=== PATIENT | male | born 1940 | race Caucasian/White ===

== ENCOUNTER → 2018-11-02 11:41 | Outpatient (CLI) | payer MEDICARE, OTHER ==
[2014-07-02 01:58] VITALS: BMI 25.1
[~2018-11-02 11:41] MED LIST: ATIVAN1 MG PO; PAXIL10 MG PO
== END | disposition home or self-care (01) ==
LOC: D.CT 11:41
DX: I71.4 Abdominal aortic aneurysm, without rupture (principal)

== ENCOUNTER → 2019-06-07 14:46 | Outpatient (CLI) | payer MEDICARE, OTHER ==
[2014-07-02 01:58] VITALS: BMI 25.1
== END | disposition home or self-care (01) ==
LOC: D.CT 14:46
PROVIDERS: ATTEND Internal Medicine Interventional Cardiology
DX: I71.4 Abdominal aortic aneurysm, without rupture (principal)

== ENCOUNTER → 2019-09-01 08:17 | Outpatient (CLI) | payer MEDICARE, OTHER ==
[2014-07-02 01:58] VITALS: BMI 25.1
== END | disposition home or self-care (01) ==
LOC: D.CT 08:17
PROVIDERS: ATTEND Internal Medicine Interventional Cardiology
DX: I71.4 Abdominal aortic aneurysm, without rupture (principal)

== ENCOUNTER → 2020-03-20 10:18 | Outpatient (CLI) | payer MEDICARE, OTHER ==
[2014-07-02 01:58] VITALS: BMI 25.1
== END | disposition home or self-care (01) ==
LOC: D.CT 10:18
PROVIDERS: ATTEND Internal Medicine Cardiovascular Disease
DX: I71.4 Abdominal aortic aneurysm, without rupture (principal)

== ENCOUNTER 2020-04-12 21:43 | Emergency (ER) | payer MEDICARE, OTHER ==
[~2020-04-12] VITALS: Ht 177.8 cm; Wt 75.0 kg
[2020-04-12 21:54] VITALS: Ht 177.8 cm; Wt 75.0 kg
[2020-04-12 22:35] LABS: BASOPHILS 0.5 % (0-2); EOSINOPHILS 5.3 % (0-7); HEMATOCRIT 43.6 % (42.0-54.0); HEMOGLOBIN 14.6 g/dL (13.5-17.5); IMMATURE GRANULOCYTES 0.2 % (0-5); LYMPHOCYTES 24.7 % (15-50); MCHC 33.5 g/dL (31.0-37.0); MCV 89.7 fL (80.0-100.0); MEAN PLATELET VOLUME 10.3 fL (7.4-10.4); MONOCYTES 12.2 % (2-11); NEUTROPHILS 57.1 % (40-80); PLATELET COUNT 140 10x3/uL (130-400); RBC 4.86 10x6/uL (4.20-6.10); RDW 13.6 % (11.5-14.5); WBC 6.6 10x3/uL (4.8-10.8)
[2020-04-12 22:45] LABS: ANION GAP 11.1 mmol/L (8-16); CALCIUM 8.6 mg/dL (8.5-10.1); CARBON DIOXIDE 26.9 mmol/L (21.0-32.0); CREATININE - SERUM 1.3 mg/dL (0.6-1.3)
[2020-04-12 22:53] LABS: ALBUMIN 3.2 g/dL (3.4-5.0); BILIRUBIN - TOTAL 0.45 mg/dL (0.2-1.3); PROTEIN - SERUM 6.9 g/dL (6.4-8.2); TROPONIN-I 0.058 ng/mL (0.000-0.060)
[2020-04-13] MEDS ORDERED: ULTRAM50 MG PO (01:34)
[2020-04-13 01:48] VITALS: BP 170/91
== END 2020-04-13 01:49 | disposition home or self-care (01) ==
LOC: D.ER 21:43
PROVIDERS: Family Medicine
DX: R07.89 Other chest pain (principal); Z95.0 Presence of cardiac pacemaker

== ENCOUNTER 2020-04-20 11:38 | Outpatient (CLI) | payer MEDICARE, OTHER ==
[~2020-04-20] VITALS: Ht 177.8 cm; Wt 74.5 kg
[~2020-04-20 11:38] MED LIST changes: +ULTRAM50 MG PO
[2020-04-20 12:57] VITALS: BP 150/74; Ht 177.8 cm; Wt 74.5 kg
[2020-04-20] MEDS ORDERED: PLAVIX75 MG PO (15:46)
[2020-04-20] MEDS ORDERED: BAYER CHEWABLE81 MG PO (15:46)
== END 2020-04-20 18:45 | disposition home or self-care (01) ==
LOC: D.CATH 11:38
PROVIDERS: ATTEND Internal Medicine Interventional Cardiology
DX: I70.1 Atherosclerosis of renal artery (principal); I10 Essential (primary) hypertension; Z95.0 Presence of cardiac pacemaker; I71.4 Abdominal aortic aneurysm, without rupture; I48.91 Unspecified atrial fibrillation

== ENCOUNTER → 2020-08-23 07:32 | Outpatient (CLI) | payer MEDICARE, OTHER ==
[2020-04-20 12:57] VITALS: BMI 23.5
[~2020-08-23 07:32] MED LIST changes: +BAYER CHEWABLE81 MG PO; +PLAVIX75 MG PO
== END | disposition home or self-care (01) ==
LOC: D.US 07:32
PROVIDERS: ATTEND Internal Medicine Interventional Cardiology
DX: I71.4 Abdominal aortic aneurysm, without rupture (principal)

== ENCOUNTER → 2021-01-26 08:57 | Outpatient (CLI) | payer MEDICARE, OTHER ==
[2020-04-20 12:57] VITALS: BMI 23.5
== END | disposition home or self-care (01) ==
LOC: D.US 08:57
PROVIDERS: ATTEND Internal Medicine Interventional Cardiology
DX: I71.4 Abdominal aortic aneurysm, without rupture (principal)

== ENCOUNTER → 2021-02-06 08:38 | Outpatient (CLI) | payer MEDICARE, OTHER ==
[2020-04-20 12:57] VITALS: BMI 23.5
== END | disposition home or self-care (01) ==
LOC: D.CT 08:38
PROVIDERS: ATTEND Thoracic Surgery (Cardiothoracic Vascular Surgery)
DX: I71.4 Abdominal aortic aneurysm, without rupture (principal)

== ENCOUNTER 2021-02-09 13:58 | Inpatient (IN) | payer MEDICARE, OTHER ==
[~2021-02-09] VITALS: Ht 177.8 cm; Wt 76.1 kg
[2021-02-09 12:53] LABS: BASOPHILS 0.4 % (0-2); EOSINOPHILS 3.2 % (0-7); HEMATOCRIT 47.1 % (42.0-54.0); HEMOGLOBIN 15.6 g/dL (13.5-17.5); IMMATURE GRANULOCYTES 0.3 % (0-5); LYMPHOCYTES 22.6 % (15-50); MCH 29.7 pg (26.0-34.0); MCHC 33.1 g/dL (31.0-37.0); MCV 89.5 fL (80.0-100.0); MEAN PLATELET VOLUME 10.6 fL (7.4-10.4); MONOCYTES 10.3 % (2-11); NEUTROPHIL ABS# 4.48 10x3/uL (1.78-5.38); NEUTROPHILS 63.2 % (40-80); PLATELET COUNT 163 10x3/uL (130-400); RBC 5.26 10x6/uL (4.20-6.10); RDW 13.5 % (11.5-14.5); WBC 7.1 10x3/uL (4.8-10.8)
[2021-02-09 12:59] LABS: BILIRUBIN NEGATIVE (NEGATIVE); KETONE NEGATIVE (NEGATIVE); NITRITE NEGATIVE (NEGATIVE); UROBILINOGEN NORMAL mg/dL (< 2)
[2021-02-09 13:02] LABS: APTT 29.8 SECONDS (22.8-39.4); INR 1.11 (0.85-1.17); PROTIME 13.3 SECONDS (11.6-15.0)
[2021-02-09 13:09] LABS: ALBUMIN 3.5 g/dL (3.4-5.0); ANION GAP 7.9 mmol/L (8-16); BILIRUBIN - TOTAL 0.73 mg/dL (0.2-1.3); CALCIUM 9.2 mg/dL (8.5-10.1); CARBON DIOXIDE 28.9 mmol/L (21.0-32.0); CREATININE - SERUM 1.2 mg/dL (0.6-1.3); POTASSIUM - SERUM 4.8 mmol/L (3.5-5.1); PROTEIN - SERUM 7.5 g/dL (6.4-8.2)
[~2021-02-09 13:58] MED LIST changes: +FLUTICASONE PRO16 GM NASAL
[2021-02-12] VITALS (58 sets, daily range): BP systolic 101–144; BP diastolic 41–79; BMI 23.8; BMI 23.7
--- NOTE | 2021-02-12 16:49 | NUR ---
PT COMPLAINING OF BLADDER SPASMS. DR. BARBER NOTIFIED. ORDERED TO DC DIXON CATHETER AND NICOLE.
[2021-02-13] VITALS (62 sets, daily range): BP systolic 54–169; BP diastolic 25–78
--- NOTE | 2021-02-13 02:58 | NUR ---
PT UNABLE TO URINATE SINCE DIXON D/C'D. PT SAT ON SIDE OF BED TO ATTEMPT AND WAS UNABLE TO URINATE. BLADDER SCANNED WITH 633MLS, NOTED. PAGED [employer] SIGNAL TOWER OPERATOR MECHANICAL CAD DRAFTER, REPORT GIVEN. ORDER FOR IN AND OUT CATH AND RECHECK BLADDER IN 4 HOURS.
--- NOTE | 2021-02-13 03:45 | NUR ---
IN AND OUT CATH COMPLETED 575ML COLLECTED. CLEAR YELLOW. PT TOLERATED WELL.
[2021-02-13 05:19] LABS: HEMOGLOBIN 11.6 g/dL (13.5-17.5); MCHC 32.2 g/dL (31.0-37.0); MEAN PLATELET VOLUME 10.6 fL (7.4-10.4); RDW 13.9 % (11.5-14.5); WBC 10.4 10x3/uL (4.8-10.8)
[2021-02-13 05:29] LABS: ANION GAP 8.5 mmol/L (8-16); CALCIUM 8.2 mg/dL (8.5-10.1); CARBON DIOXIDE 28.3 mmol/L (21.0-32.0); CREATININE - SERUM 1.1 mg/dL (0.6-1.3); POTASSIUM - SERUM 3.8 mmol/L (3.5-5.1)
--- NOTE | 2021-02-13 07:00 | NUR ---
RECEIVED BEDSIDE REPORT ON PATIENT AND ASSUMED CARE. PATIENT IN BED, ALERT AND ORIENTED X 4, NO COMPLAINTS AT PRESENT, STATES ORAL PAIN MEDS HELPED. RIGHT IJ CVL WITH DRESSING C/D/I INFUSING PLASMOLTYE AT 100 ML/HR, NTG AT 20 MCG/MIN (6 ML/HR) AND ZINACEF AT 12.8 ML/HR. BBS - CLEAR AND EQUAL, SPO2 95% ON 2 LPM O2 VIA NC. CM - PACED RATE 74. PATIENT STATES HAS NOT VOIDED SINCE DIXON CATH BEING DISCONTINUED. WAS BLADDER SCANNED LAST NIGHT AND HAD 60 ML, IN AND OUT DIXON COMPLETED WITH 75 RETURNED PER NIGHT RN. BILATERAL GROIN SITES, DRESSING C/D/I, DISTAL DP PULSES PRESENT. HARRY HOSE AND SCD'S IN PLACE. HEAD TO TOE ASSESSMENT COMPELTED. PATEITN WITH ACTIVE BOWEL SOUNDS AND PASSING GAS.
--- NOTE | 2021-02-13 08:02 | NUR ---
DR. DEE AT ROOM UPDATED AND EXAMINES PATIENT.
--- NOTE | 2021-02-13 08:59 | NUR ---
BLADDER SCANNER SHOWED 296 ML, PATIENT NOT ABLE TO VOID.
--- NOTE | 2021-02-13 09:20 | NUR ---
PRN HYDRALIZINE GIVEN FOR SBP 152. BP 152/71.
--- NOTE | 2021-02-13 09:27 | NUR ---
PATEINT UP TO BEDSIDE CHAIR. AT BEDSIDE.
--- NOTE | 2021-02-13 09:54 | NUR ---
PATIENT ASSISTED TO BATHROOM. VSS.
--- NOTE | 2021-02-13 10:42 | MORECARE ---
CASE MANAGEMENT DISCHARGE SUMMARY PATIENT: NICOLAS SAMAYOA UNIT: [id number] ADM DATE: 02/12/21 AGE: 80 : 41 SEX: M ROOM/BED: [facility] AUTHOR: MARGARETH,DOC PHYSICIAN: REFERRING PHYSICIAN: KYLER BARBER MD DATE OF SERVICE: 02/13/21 Case Management Discharge Planning Summary CT Patient Name: NICOLAS SAMAYOA Attending MD : KYLER WEISS Medical Record: [id number] Encounter : [id number] Facility : [address] [place] [address] Admission Date : 02/12/2021 5:00 Center Discharge Date : [address] [place] [address] Date of : DC Plan ID : [id number] Age/Sex/Martia : 80/ M/M Printed on : 02/13/21 10:40 CT DCP Review Details Anticipated D/C: 02/13/2021 Expected LOS : 1 Case Status : INITIATED - Initial Reviewe: [id number] - Lesa Pearson Initial Review: 02/13/2021 Planned Disposi: 01 - Home or Self Care (Routine Discharge) Final Discharge: - Final Reviewer : : Final Review : Comments CT Entered Date Type Reviewer 02/13/21 10:37 CT Discharge Planning Lesa Pearson Comment After obtaining verbal consent, CM met with patient and his spouse, Kylie, about discharge planning / needs. Patient states he plans to discharge to home. States the home environment is safe. States his will transport him home upon discharge. CM explained and served DC IMM. Copy on chart. Patient is hoping to discharge to home today. Patient and spouse in agreement on discharge plan. CM will continue to follow and assist as needed with discharge planning / needs. DCP Focus Questions & Answers DCP Screen High Risk Factors: High risk meds DCP Evaluation Patient gives permission to discuss discharge Kylie Samayoa, Spouse, plans with: (name, relationship and number) Patient's ability to cope with chronic illness a. Adequate (0-3 ED visits in 6 mos., adequate financial resources, attends scheduled appts.) Patient and/or caregiver agree upon recommended Yes discharge plan? Family / Caregiver's ability to cope with chronic a. Adequate (ability to meet patient's illness: medical needs, ensures patient attends medical appts.) Patient's current cognitive status: *Oriented to person, place, situation, time and present Family / Caregiver's ability to cope with chronic a. Adequate (ability to meet patient's illness: medical needs, ensures patient attends medical appts.) Physical Status: Independent with ADL's Does the patient have the ability to pay for or Yes attain post discharge needs / services? Functional screen assessment: Basic needs can adequately be met by self Living Arrangements: Home with Spouse/Significant Other Equipment needed for post hospitalization: None Is there a likelihood that the patient will No require additional services to return to the preadmission environment? Baseline cognitive status: *Oriented to person, place, situation, time and present Results of this evaluation have been discussed Spouse with: Patient with capacity for self-care or can be Yes cared for in same environment as prior to hospitalization? Physical environment modification needed / No anticipated for discharge: Medication Management: Patient states can afford medications Planned post hospital services available for Yes patient? Pharmacy name(s): [facility] Planned post hospital services covered by Yes insurance plan? Does Patient have transportation to get home and Yes to follow-up medical appointments when discharged from the hospital? Would patient like to participate in any Care Not applicable Coordination programs (if applicable): Does the patient have electricity at home? Yes Does the patient have running water in their Yes house? Other Equipment comments: Grab Bars in Shower Mental health screen: Receiving treatment, not under the care of a mental health provider Psychosocial status: Independent adult (65+) Abuse/Neglect: None Resources / Services in place: None DCP Re-evaluation Would patient like to participate in any Care Not applicable Coordination programs (if applicable): [facility] NICOLAS SAMAYOA MR#: [id number] /Age/Sex/Yrxxxz5-Udf-72 /80/M /M Attending Physician Name: RIKI BARBER [id number] Patient Account:[id number] [facility] Page -1 of 1 All edits/amendments must be made on the electronic document DICTATION DATE: 02/13/211039 ELECTRICAL MACHINE BUILDER: [place] 02/13/211039 RPT#: [id number] [place] DATE: STATUS: ADM IN [facility] [address] [place] [address] END OF REPORT
--- NOTE | 2021-02-13 11:00 | NUR ---
REASSESSMENT COMPLETED. VSS. SITTING UP IN BEDSIDE CHAIR.
--- NOTE | 2021-02-13 13:04 | NUR ---
PATIENT UP AND WALKED APPROXIMATELY 140 FEET. TOLERATED WELL NO ISSUES.
--- NOTE | 2021-02-13 15:22 | NUR ---
PATIENT GIVEN 10 MG PRN APRESSOLINE IVP WITH NS FLUSH FOR BP 169/79.
--- NOTE | 2021-02-13 16:17 | NUR ---
BP 162/64 IN LEFT ARM AND 160/67, PER DR. BARBER GIVEN 25 MG APRESSOLINE PO.
--- NOTE | 2021-02-13 16:23 | OP ---
PATIENT NAME: NICOLAS SAMAYOA MEDICAL RECORD: [id number] :42 LOCATION:D.I DJuan ManuelCV04 ADMISSION DATE:02/12/21 SURGEON: ZIA BARBER MD DATE OF OPERATION: 02/12/2021 SURGEON: Zia Barber MD PROCEDURE PERFORMED: Percutaneous endovascular repair of abdominal aortic aneurysm with deployment of a bifurcated endograft, deployment of infrarenal proximal extension, aortogram times 4, iliac angiogram, bilateral percutaneous femoral access utilizing ultrasound. 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 ANESTHESIA: General endotracheal anesthesia. ESTIMATED BLOOD LOSS: 50 cc. SPECIMENS: None. COMPLICATIONS: None. CONDITION: Stable. DISPOSITION: ICU. OPERATIVE FINDINGS: 1. Initial aortogram confirmed the placement of a stent, intraoperatively reviewed with cardiology, who felt no further intervention was necessary at this time. 2. Completion angiogram with no evidence of endoleak. INDICATION: Documented enlargement of abdominal aortic aneurysm. PROCEDURE IN DETAIL: The patient was brought to the operating suite where general anesthesia was obtained, the patient was prepped and draped. Bilateral femoral access was obtained using ultrasound and micropuncture technique. On the right side, 6-Eritrean sheath was exchanged for 2 pre-deployed ProGlide systems and then a 9-Eritrean sheath and on the left a 7-Eritrean sheath. On the right side, the pigtail catheter was placed and the initial arteriogram was performed confirming the noncontrasted findings seen on the CT scan on the left snare catheter and snare were placed and then on the right side, a stiff wire was placed. The introducer system was placed and the bifurcated endograft was advanced. The wire was snared from the contralateral side and the device was seated on the aortic bifurcation after checking for wire wrap. Main body of the graft was deployed. Then, the contralateral wire was unlocked using a pigtail catheter and the left limb was deployed, then the right limb was deployed. The proximal extension was advanced to the appropriate size and an angiogram was performed again visualizing the stent which was clearly visible on fluoroscopy. Proximal extension was deployed. Aortic angioplasty was performed after removing the pigtail catheter, which was unable to be reformed and was removed OPERATIVE REPORT [id number] NICOLAS SAMAYOA from the left. Pigtail was placed up the right side and the completion angiogram was performed. Pigtail was then replaced on the left. The right side was closed percutaneously and completion angiogram was only able to partially opacify the right femoral, but showed no evidence of obstruction. No bleeding was noted. The sheath was used on the left side for placement of the Angio-Seal device. Protamine was given, a total of 10,000 had been given of heparin initially after placing the 2 femoral sheaths. The patient is stable to ICU with Doppler bilateral dorsalis pedis and posterior tibial. TRANSINT:[id number] Voice Confirmation ID: [id number] DOCUMENT ID: [id number] ZIA BARBER MD at 1623 CC: HARRY JALLOH DO and MINO SHEARER MD [id number] DICTATION DATE: 02/12/21 1042 BOARD HAMMER OPERATOR: 02/12/21 1814 ADM IN [facility] [address] [place] [address]
--- NOTE | 2021-02-13 23:23 | NUR ---
PT WITH NO C/O, UPDATED AT BEGINNING OF SHIFT ON POC. DISCUSSED AT LENGTH BP MEDS AND NEED FOR CONTROLLED BP. PT WALKED WELL TO BATHROOM. WALKED WITH PT TO ASSIST IF NEEDED AND FOR SAFETY. NO COMPLICATIONS NOTED. BACK TO BED AND RECONNECTED TO MONITOR. SBP >150 AT 2200. GIVEN PRN MED ORDERED. 2230 IMPROVED AND 2300 BP <150 SBP. WILL CONT TO MONITOR. SLEEPING WITHOUT C/O. C/B IN REACH.
[2021-02-14] VITALS (31 sets, daily range): BP systolic 87–178; BP diastolic 41–89; Ht 177.8 cm; Wt 76.1 kg
[2021-02-14 05:09] LABS: BASOPHILS 0.2 % (0-2); HEMATOCRIT 38.2 % (42.0-54.0); HEMOGLOBIN 12.4 g/dL (13.5-17.5); IMMATURE GRANULOCYTES 0.2 % (0-5); LYMPHOCYTE ABS# 1.69 10x3/uL (1.32-3.57); LYMPHOCYTES 17.9 % (15-50); MCH 29.3 pg (26.0-34.0); MCHC 32.5 g/dL (31.0-37.0); MCV 90.3 fL (80.0-100.0); MEAN PLATELET VOLUME 10.5 fL (7.4-10.4); MONOCYTES 9.7 % (2-11); NEUTROPHIL ABS# 6.72 10x3/uL (1.78-5.38); PLATELET COUNT 126 10x3/uL (130-400); RBC 4.23 10x6/uL (4.20-6.10); RDW 14.1 % (11.5-14.5); WBC 9.5 10x3/uL (4.8-10.8)
[2021-02-14 05:25] LABS: ALBUMIN 2.9 g/dL (3.4-5.0); ANION GAP 8.6 mmol/L (8-16); BILIRUBIN - TOTAL 0.9 mg/dL (0.2-1.3); CALCIUM 8.7 mg/dL (8.5-10.1); CARBON DIOXIDE 28.1 mmol/L (21.0-32.0); CREATININE - SERUM 1.1 mg/dL (0.6-1.3); POTASSIUM - SERUM 3.7 mmol/L (3.5-5.1); PROTEIN - SERUM 6.4 g/dL (6.4-8.2)
--- NOTE | 2021-02-14 09:40 | NUR ---
DR. AYALA IS HERE WITH IDT TEAM IN TO SEE PATIENT.
--- NOTE | 2021-02-14 10:36 | NUR ---
PATIENT SLEEPING AT THIS TIME NO DISTRESS NOTED. WILL CONTINUE TO MONITOR. CALL LIGHT WITHIN REACH, BED IN LOW POSITION.
--- NOTE | 2021-02-14 15:05 | NUR ---
DR. BARBER HERE IN TO SEE PATIENT. NEW ORDER RECEIVED.
[2021-02-15] VITALS (18 sets, daily range): BP systolic 111–159; BP diastolic 54–77
[2021-02-15 06:18] LABS: ALBUMIN 2.5 g/dL (3.4-5.0); ALKALINE PHOSPHATASE 50 U/L (30-120); ALT (SGPT) 9 U/L (10-68); BILIRUBIN - TOTAL 0.87 mg/dL (0.2-1.3); CALC OSMOLALITY 277 mosm/kg (275-300); CALCIUM 8.3 mg/dL (8.5-10.1); CARBON DIOXIDE 26.9 mmol/L (21.0-32.0); CHLORIDE - SERUM 105 mmol/L (98-107); GLUCOSE 87 mg/dL (74-106); POTASSIUM - SERUM 3.7 mmol/L (3.5-5.1); PROTEIN - SERUM 5.7 g/dL (6.4-8.2); SODIUM 139 mmol/L (136-145); UREA NITROGEN 15 mg/dL (7-18); eGFR NON AFRICAN AMERICAN 76 mL/min (90-120)
[2021-02-15 07:06] LABS: BASOPHILS 0.2 % (0-2); EOSINOPHILS 6.8 % (0-7); HEMATOCRIT 35.9 % (42.0-54.0); HEMOGLOBIN 11.5 g/dL (13.5-17.5); IMMATURE GRANULOCYTES 0.2 % (0-5); LYMPHOCYTE ABS# 1.48 10x3/uL (1.32-3.57); LYMPHOCYTES 23.8 % (15-50); MCH 29.3 pg (26.0-34.0); MCV 91.6 fL (80.0-100.0); MONOCYTES 12.6 % (2-11); NEUTROPHIL ABS# 3.51 10x3/uL (1.78-5.38); NEUTROPHILS 56.4 % (40-80); PLATELET COUNT 117 10x3/uL (130-400); RBC 3.92 10x6/uL (4.20-6.10); WBC 6.2 10x3/uL (4.8-10.8)
--- NOTE | 2021-02-15 10:14 | MORECARE ---
CASE MANAGEMENT DISCHARGE SUMMARY PATIENT: NICOLAS SAMAYOA UNIT: [id number] ADM DATE: 02/12/21 AGE: 80 : 41 SEX: M ROOM/BED: [facility] AUTHOR: MARGARETH,DOC PHYSICIAN: REFERRING PHYSICIAN: KYLER BARBER MD DATE OF SERVICE: 02/15/21 Case Management Discharge Planning Summary CT Patient Name: NICOLAS SAMAYOA Attending MD : KYLER WEISS Medical Record: [id number] Encounter : [id number] Facility : [address] [place] [address] Admission Date : 02/12/2021 5:00 Center Discharge Date : [address] [place] [address] Date of : DC Plan ID : [id number] Age/Sex/Martia : 80/ M/M Printed on : 02/15/21 10:13 CT DCP Review Details Anticipated D/C: 02/13/2021 Expected LOS : 1 Case Status : INITIATED - Initial Reviewe: [id number] - Lesa Pearson Initial Review: 02/13/2021 Planned Disposi: 01 - Home or Self Care (Routine Discharge) Final Discharge: - Final Reviewer : : Final Review : Comments CT Entered Date Type Reviewer 02/13/21 10:37 CT Discharge Planning Lesa Pearson Comment After obtaining verbal consent, CM met with patient and his spouse, Kylie, about discharge planning / needs. Patient states he plans to discharge to home. States the home environment is safe. States his will transport him home upon discharge. CM explained and served DC IMM. Copy on chart. Patient is hoping to discharge to home today. Patient and spouse in agreement on discharge plan. CM will continue to follow and assist as needed with discharge planning / needs. DCP Focus Questions & Answers DCP Screen High Risk Factors: High risk meds DCP Evaluation Patient gives permission to discuss discharge Kylie Samayoa, Spouse, plans with: (name, relationship and number) Patient's ability to cope with chronic illness a. Adequate (0-3 ED visits in 6 mos., adequate financial resources, attends scheduled appts.) Patient and/or caregiver agree upon recommended Yes discharge plan? Family / Caregiver's ability to cope with chronic a. Adequate (ability to meet patient's illness: medical needs, ensures patient attends medical appts.) Patient's current cognitive status: *Oriented to person, place, situation, time and present Family / Caregiver's ability to cope with chronic a. Adequate (ability to meet patient's illness: medical needs, ensures patient attends medical appts.) Physical Status: Independent with ADL's Does the patient have the ability to pay for or Yes attain post discharge needs / services? Functional screen assessment: Basic needs can adequately be met by self Living Arrangements: Home with Spouse/Significant Other Equipment needed for post hospitalization: None Is there a likelihood that the patient will No require additional services to return to the preadmission environment? Baseline cognitive status: *Oriented to person, place, situation, time and present Results of this evaluation have been discussed Spouse with: Patient with capacity for self-care or can be Yes cared for in same environment as prior to hospitalization? Physical environment modification needed / No anticipated for discharge: Medication Management: Patient states can afford medications Planned post hospital services available for Yes patient? Pharmacy name(s): [facility] Planned post hospital services covered by Yes insurance plan? Does Patient have transportation to get home and Yes to follow-up medical appointments when discharged from the hospital? Would patient like to participate in any Care Not applicable Coordination programs (if applicable): Does the patient have electricity at home? Yes Does the patient have running water in their Yes house? Other Equipment comments: Grab Bars in Shower Mental health screen: Receiving treatment, not under the care of a mental health provider Psychosocial status: Independent adult (65+) Abuse/Neglect: None Resources / Services in place: None DCP Re-evaluation Would patient like to participate in any Care Not applicable Coordination programs (if applicable): [facility] NICOLAS SAMAYOA MR#: [id number] /Age/Sex/Oinghf8-Egs-88 /80/M /M Attending Physician Name: RIKI BARBER [id number] Patient Account:[id number] [facility] Page -1 of 1 All edits/amendments must be made on the electronic document DICTATION DATE: 02/15/21 1013 MATERIALS DEVELOPMENT ENGINEER: [place] 02/15/21 1013 RPT#: [id number] DC DATE: STATUS: ADM IN [facility] [address] [place] [address] END OF REPORT
--- NOTE | 2021-02-15 10:42 | NUR ---
PATIENT WALKED DISTANCE OF 500FT. TOLERATED WELL. DR. BARBER'S NOTIFIED THAT PATIENT IS READY FOR DISCHARGE.
--- NOTE | 2021-02-15 10:53 | NUR ---
Nutrition Follow-up: POD 3 PEVAR. Appetite ok. Ate ~50% of breakfast this AM. Denies N/V. -BM; +flatus. Pt reports plans to d/c today. Diet: Cardiac PO intake: 50-80% Wt: 167.5# (02/15); 165.3# (02/12) Labs noted: Ca 8.3, Alb 2.5 Meds noted: Colace -Encourage PO intake and honor food preferences within diet restrictions. -RD follow-up: 02/19
--- NOTE | 2021-02-15 13:15 | NUR ---
PT UP AMBULATING IN ROOM, TOLERATING WELL, WILL MONITOR
[2021-02-15] MEDS ORDERED: HYDRALAZINE HCL25 MG PO (15:44)
--- NOTE | 2021-02-15 16:20 | NUR ---
CVL DC'D AT THIS TIME
--- NOTE | 2021-02-15 16:45 | NUR ---
PT DISCHARGED HOME AT THIS TIME WITH PRESENT, DISCHARGE INSTRUCTIONS GIVEN AND FOLLOW UP APPT MADE, PT VERBALIZES UNDERSTANDING
--- NOTE | 2021-02-16 11:56 | MORECARE ---
CASE MANAGEMENT DISCHARGE SUMMARY PATIENT: NICOLAS SAMAYOA UNIT: [id number] ADM DATE: 02/12/21 AGE: 80 : 41 SEX: M ROOM/BED: [facility] AUTHOR: MARGARETH,DOC PHYSICIAN: REFERRING PHYSICIAN: KYLER BARBER MD DATE OF SERVICE: 02/16/21 Case Management Discharge Planning Summary CT Patient Name: NICOLAS SAMAYOA Attending MD : KYLER WEISS Medical Record: [id number] Encounter : [id number] Facility : [address] [place] [address] Admission Date : 02/12/2021 5:00 Center Discharge Date : 02/15/[address] [place] [address] Date of : DC Plan ID : [id number] Age/Sex/Martia : 80/ M/M Printed on : 02/16/21 11:55 CT DCP Review Details Anticipated D/C: 02/13/2021 Expected LOS : 1 Case Status : INITIATED - Initial Reviewe: [id number] - Lesa Pearson Initial Review: 02/13/2021 Planned Disposi: 01 - Home or Self Care (Routine Discharge) Final Discharge: - Final Reviewer : : Final Review : Comments CT Entered Date Type Reviewer 02/13/21 10:37 CT Discharge Planning Lesa Pearson Comment After obtaining verbal consent, CM met with patient and his spouse, Kylie, about discharge planning / needs. Patient states he plans to discharge to home. States the home environment is safe. States his will transport him home upon discharge. CM explained and served DC IMM. Copy on chart. Patient is hoping to discharge to home today. Patient and spouse in agreement on discharge plan. CM will continue to follow and assist as needed with discharge planning / needs. DCP Focus Questions & Answers DCP Screen High Risk Factors: High risk meds DCP Evaluation Patient gives permission to discuss discharge Kylie Samayoa, Spouse, plans with: (name, relationship and number) Patient's ability to cope with chronic illness a. Adequate (0-3 ED visits in 6 mos., adequate financial resources, attends scheduled appts.) Patient and/or caregiver agree upon recommended Yes discharge plan? Family / Caregiver's ability to cope with chronic a. Adequate (ability to meet patient's illness: medical needs, ensures patient attends medical appts.) Patient's current cognitive status: *Oriented to person, place, situation, time and present Family / Caregiver's ability to cope with chronic a. Adequate (ability to meet patient's illness: medical needs, ensures patient attends medical appts.) Physical Status: Independent with ADL's Does the patient have the ability to pay for or Yes attain post discharge needs / services? Functional screen assessment: Basic needs can adequately be met by self Living Arrangements: Home with Spouse/Significant Other Equipment needed for post hospitalization: None Is there a likelihood that the patient will No require additional services to return to the preadmission environment? Baseline cognitive status: *Oriented to person, place, situation, time and present Results of this evaluation have been discussed Spouse with: Patient with capacity for self-care or can be Yes cared for in same environment as prior to hospitalization? Physical environment modification needed / No anticipated for discharge: Medication Management: Patient states can afford medications Planned post hospital services available for Yes patient? Pharmacy name(s): [facility] Planned post hospital services covered by Yes insurance plan? Does Patient have transportation to get home and Yes to follow-up medical appointments when discharged from the hospital? Would patient like to participate in any Care Not applicable Coordination programs (if applicable): Does the patient have electricity at home? Yes Does the patient have running water in their Yes house? Other Equipment comments: Grab Bars in Shower Mental health screen: Receiving treatment, not under the care of a mental health provider Psychosocial status: Independent adult (65+) Abuse/Neglect: None Resources / Services in place: None DCP Re-evaluation Would patient like to participate in any Care Not applicable Coordination programs (if applicable): [facility] NICOLAS SAMAYOA MR#: [id number] /Age/Sex/Iqbshi9-Kaf-57 /80/M /M Attending Physician Name: RIKI BARBER [id number] Patient Account:[id number] [facility] Page -1 of 1 All edits/amendments must be made on the electronic document DICTATION DATE: 02/16/21 1155 HEEL BRUSHER: [place] 02/16/21 1155 RPT#: [id number] DC DATE:02/15/21 STATUS: DIS [facility] [address] [facility] [place] [address] END OF REPORT
== END 2021-02-15 16:45 | disposition home or self-care (01) | DRG 269 ==
LOC: D.SDCHOLD 02-12 05:00 → D.CVICU 02-12 05:00 → D.SDCHOLD 02-12 07:30 → D.CVICU 02-12 09:50
PROVIDERS: Emergency Medicine; ADMIT Thoracic Surgery (Cardiothoracic Vascular Surgery); ATTEND Thoracic Surgery (Cardiothoracic Vascular Surgery)
PROC: 04V03DZ Restriction of Abdominal Aorta with Intraluminal Device, Percutaneous Approach (ICD-10-PCS; principal; 2021-02-12 07:30)
DX: I71.4 Abdominal aortic aneurysm, without rupture (principal); M35.3 Polymyalgia rheumatica; F41.9 Anxiety disorder, unspecified; F32.9 Major depressive disorder, single episode, unspecified; R00.1 Bradycardia, unspecified; N28.1 Cyst of kidney, acquired; M19.90 Unspecified osteoarthritis, unspecified site; I97.3 Postprocedural hypertension; Y83.9 Surgical procedure, unspecified as the cause of abnormal reaction of the patient, or of later complication, without mention of misadventure at the time of the procedure; Z95.0 Presence of cardiac pacemaker; Z87.891 Personal history of nicotine dependence; K21.9 Gastro-esophageal reflux disease without esophagitis; I10 Essential (primary) hypertension

== ENCOUNTER → 2021-02-19 10:34 | Outpatient (CLI) | payer MEDICARE, OTHER ==
[2021-02-14 12:03] VITALS: BMI 23.9
[~2021-02-19 10:34] MED LIST changes: +FLOMAX0.4 MG PO; +HYDRALAZINE HCL25 MG PO; +PROTONIX40 MG PO
[2021-02-19 11:04] LABS: BASOPHILS 0.7 % (0-2); EOSINOPHILS 3.8 % (0-7); HEMATOCRIT 39.9 % (42.0-54.0); IMMATURE GRANULOCYTES 0.4 % (0-5); LYMPHOCYTE ABS# 1.36 10x3/uL (1.32-3.57); LYMPHOCYTES 24.9 % (15-50); MCH 29.3 pg (26.0-34.0); MCHC 32.6 g/dL (31.0-37.0); MCV 90.1 fL (80.0-100.0); MEAN PLATELET VOLUME 10.7 fL (7.4-10.4); MONOCYTES 10.8 % (2-11); NEUTROPHIL ABS# 3.25 10x3/uL (1.78-5.38); NEUTROPHILS 59.4 % (40-80); RBC 4.43 10x6/uL (4.20-6.10); RDW 13.5 % (11.5-14.5); WBC 5.5 10x3/uL (4.8-10.8)
[2021-02-19 11:20] LABS: PLATELET COUNT 159 10x3/uL (130-400)
== END | disposition home or self-care (01) ==
LOC: D.LAB 10:34
PROVIDERS: ATTEND Thoracic Surgery (Cardiothoracic Vascular Surgery)
DX: Z98.890 Other specified postprocedural states (principal)

== ENCOUNTER 2021-02-26 00:06 | Observation (INO) | payer MEDICARE, OTHER ==
[~2021-02-26] VITALS: Ht 177.8 cm; Wt 71.8 kg
[~2021-02-26 00:06] MED LIST changes: -FLOMAX0.4 MG PO; -PROTONIX40 MG PO
[2021-02-26 00:39] LABS: BASOPHILS 0.1 % (0-2); EOSINOPHILS 5.3 % (0-7); HEMATOCRIT 43.4 % (42.0-54.0); HEMOGLOBIN 14.1 g/dL (13.5-17.5); IMMATURE GRANULOCYTES 0.2 % (0-5); LYMPHOCYTE ABS# 1.59 10x3/uL (1.32-3.57); MCHC 32.5 g/dL (31.0-37.0); MCV 89.1 fL (80.0-100.0); MEAN PLATELET VOLUME 11.1 fL (7.4-10.4); MONOCYTES 4.7 % (2-11); NEUTROPHIL ABS# 6.31 10x3/uL (1.78-5.38); NEUTROPHILS 71.7 % (40-80); PLATELET COUNT 150 10x3/uL (130-400); RBC 4.87 10x6/uL (4.20-6.10); RDW 13.2 % (11.5-14.5); WBC 8.8 10x3/uL (4.8-10.8)
[2021-02-26 00:50] LABS: ANION GAP 14.4 mmol/L (8-16); CALCIUM 8.8 mg/dL (8.5-10.1); CARBON DIOXIDE 24.5 mmol/L (21.0-32.0); CREATININE - SERUM 1.5 mg/dL (0.6-1.3); POTASSIUM - SERUM 3.9 mmol/L (3.5-5.1)
[2021-02-26 00:57] LABS: ALBUMIN 3.2 g/dL (3.4-5.0); BILIRUBIN - TOTAL 0.57 mg/dL (0.2-1.3); C-REACTIVE PROTEIN 8.4 mg/dL (0.0-0.9); PROTEIN - SERUM 7.1 g/dL (6.4-8.2)
[2021-02-26 01:33] LABS: TROPONIN-I 0.076 ng/mL (0.000-0.060)
[2021-02-26 02:15] VITALS: BP 115/65
[2021-02-26 02:23] LABS: INFLUENZA TYPE A NEGATIVE (NEGATIVE); INFLUENZA TYPE B NEGATIVE (NEGATIVE); SARS-CoV-2 ANTIGEN NEGATIVE- SARS-COV-2 (NEGATIVE)
--- NOTE | 2021-02-26 06:00 | NUR ---
ADMIT TO ROOM 2132 FROM ER AT 0610. PT ALERT/ORIENTED. ABLE TO WALK FROM STETCHER TO BED. ADMISSION ASSESSMENT AND HISTORY COMPLETED. IVF NS @ 150ML/HR INFUSING TO LEFT A/C. NONLABORED RESPIRATIONS ON ROOM AIR. VSS. TELEMETRY STARTED. SR 72 PER MONITORS.
[2021-02-26 06:54] VITALS: BP 122/82; Ht 177.8 cm; Wt 71.8 kg
--- NOTE | 2021-02-26 07:20 | NUR ---
RECIEVE REPORT. ALERT AND ORIENTED X4. SINUS RHYTHM ON TELEMETRY 72. COLLECT UA ORDERED AND TAKEN TO LAB. REFUSE SCDs. RECIEVES LOVENOX INJ. DENIES ANY NEEDS. CONTINUE PLAN OF CARE AND SAFETY PRECAUTIONS.
[2021-02-26 08:14] VITALS: BP 120/76
[2021-02-26 08:31] LABS: NITRITE NEGATIVE (NEGATIVE)
[2021-02-26 08:32] LABS: BILIRUBIN NEGATIVE (NEGATIVE); KETONE NEGATIVE (NEGATIVE); UROBILINOGEN NORMAL mg/dL (< 2); WHITE CELLS - URINE RARE HPF (0-1)
[2021-02-26 08:33] LABS: BACTERIA FEW HPF (NONE SEEN); GRANULAR CAST RARE LPF (NONE SEEN); SQUAMOUS EPITHELIAL RARE HPF (0-4)
[2021-02-26 12:00] VITALS: BP 121/78
[2021-02-26 15:00] VITALS: BP 120/81
--- NOTE | 2021-02-26 15:30 | NUR ---
ALERT AND ORIENTED X4. RESTING IN BED. IV INFUSING ORDERED. BLADDER SCAN READS 175mL AFTER URINATING 30 MINUTES PRIOR. DENIES ANY NEEDS. CONTINUE PLAN OF CARE AND SAFETY PRECAUTIONS.
[2021-02-26 20:00] VITALS: BP 146/74
--- NOTE | 2021-02-26 22:31 | NUR ---
GONE TO CT VIA WC.
[2021-02-27] VITALS: BP 159/79
[2021-02-27 04:00] VITALS: BP 145/75
--- NOTE | 2021-02-27 05:08 | NUR ---
I have reviewed this patient and I concur with the Shift Assessment completed by the Licensed Practical Nurse today this shift.
[2021-02-27 06:35] LABS: HEMATOCRIT 36.5 % (42.0-54.0); HEMOGLOBIN 12.4 g/dL (13.5-17.5); LYMPHOCYTE ABS# 0.87 10x3/uL (1.32-3.57); MCH 29.2 pg (26.0-34.0); MEAN PLATELET VOLUME 10.5 fL (7.4-10.4); NEUTROPHIL ABS# 1.65 10x3/uL (1.78-5.38); RBC 4.24 10x6/uL (4.20-6.10)
[2021-02-27 06:38] LABS: ALBUMIN 2.5 g/dL (3.4-5.0); ANION GAP 15.4 mmol/L (8-16); BILIRUBIN - TOTAL 0.31 mg/dL (0.2-1.3); CALCIUM 8.3 mg/dL (8.5-10.1); CARBON DIOXIDE 22.2 mmol/L (21.0-32.0); MAGNESIUM - SERUM 2.1 mg/dL (1.8-2.4); MCV 86.1 fL (80.0-100.0); PHOSPHOROUS 3.9 mg/dL (2.5-4.9); PLATELET COUNT 108 10x3/uL (130-400); POTASSIUM - SERUM 3.6 mmol/L (3.5-5.1); PROTEIN - SERUM 5.8 g/dL (6.4-8.2); WBC 2.7 10x3/uL (4.8-10.8)
[2021-02-27 06:57] LABS: CREATININE - SERUM 1.1 mg/dL (0.6-1.3)
[2021-02-27 06:58] LABS: TROPONIN-I 0.067 ng/mL (0.000-0.060)
--- NOTE | 2021-02-27 07:13 | NUR ---
RECEIVE SHIFT REPORT. RESTING IN BED WITH TV ON. IN COVID ISOLATION UNTIL PCR RESULTS COME BACK. DENIES ANY NEEDS AT THIS TIME. WILL CONTINUE POC AND SAFETY PRECAUTIONS.
[2021-02-27 08:57] VITALS: BP 112/70
[2021-02-27 10:34] LABS: EOSINOPHILS 1 % (0-7); LYMPHOCYTES 30 % (15-50); MONOCYTES 8 % (2-11); NEUTROPHILS 53 % (40-80); PLATELET ESTIMATE DECREASED
[2021-02-27 12:38] VITALS: BP 138/73
[2021-02-27 15:35] LABS: BASOPHILS 0.2 % (0-2); EOSINOPHILS 0.4 % (0-7); HEMATOCRIT 34.7 % (42.0-54.0); HEMOGLOBIN 11.6 g/dL (13.5-17.5); IMMATURE GRANULOCYTES 0.4 % (0-5); LYMPHOCYTE ABS# 1.65 10x3/uL (1.32-3.57); LYMPHOCYTES 30.4 % (15-50); MCH 28.9 pg (26.0-34.0); MCHC 33.4 g/dL (31.0-37.0); MCV 86.5 fL (80.0-100.0); MEAN PLATELET VOLUME 11.2 fL (7.4-10.4); MONOCYTES 9.8 % (2-11); NEUTROPHILS 58.8 % (40-80); PLATELET COUNT 117 10x3/uL (130-400); RBC 4.01 10x6/uL (4.20-6.10)
[2021-02-27 15:41] LABS: WBC 5.4 10x3/uL (4.8-10.8)
[2021-02-27 15:42] VITALS: BP 136/70
[2021-02-27] MEDS ORDERED: FLOMAX0.4 MG PO (16:24)
[2021-02-27] MEDS ORDERED: PROTONIX40 MG PO (16:25)
--- NOTE | 2021-02-27 17:40 | NUR ---
RN STUDENT D/C LEFT AC IV, TIP INTACT. OFF TELEMETRY. DISCHARGE INSTRUCTIONS GIVEN VERBALLY AND HANDOUTS PROVIDED. TAKEN DOWN TO AT ED ENTRANCE.
--- NOTE | 2021-02-27 18:30 | MORECARE ---
CASE MANAGEMENT DISCHARGE SUMMARY PATIENT: NICOLAS SAMAYOA UNIT: [id number] ADM DATE: 02/26/21 AGE: 80 : 41 SEX: M ROOM/BED: D.2132 AUTHOR: MARGARETHDOC PHYSICIAN: REFERRING PHYSICIAN: CECILIA BOUCHER MD DATE OF SERVICE: 02/27/21 Case Management Discharge Planning Summary DCP REVIEW SUMMARY ANTICIPATED D/C DATE: EXPECTED LOS : CASE STATUS: DCP Not started INITIAL REVIEW: 02/26/2021 INITIAL REVIEWER: Berta Etienne FINAL DISCHARGE DISPOSITION: : FINAL REVIEWER: FINAL REVIEW DATE: DCP Focus Questions & Answers QUESTION: ANSWER : PATIENT: NICOLAS SAMAYOA ENCOUNTER: [id number] MEDICAL RECORD#: [id number] ADMISSION DATE: 02/26/2021 DISCHARGE DATE: 02/27/2021 ATTENDING MD: CECILIA CASTILLO : AGE: 80 MARITAL STATUS: M DC PLAN ID: [id number] FACILITY: [facility] PRINTED ON: 02/27/21 18:29 CT All edits/amendments must be made on the electronic document DICTATION DATE: 02/27/211828 DANCE THERAPIST: DM 02/27/211828 RPT#: [id number] DC DATE:02/27/21 STATUS: DIS IN [facility] [address] [place] [address] END OF REPORT
== END 2021-02-27 17:44 | disposition home or self-care (01) ==
LOC: D.ER 00:06 → D.M2 02:41 → OBSVTIME 02:41 → D.M2 06:00
PROVIDERS: Emergency Medicine; Family Medicine; ADMIT Family Medicine; ATTEND Family Medicine
DX: R50.9 Fever, unspecified (principal); Z20.822 Contact with and (suspected) exposure to COVID-19; R33.9 Retention of urine, unspecified; I10 Essential (primary) hypertension; M35.3 Polymyalgia rheumatica; K21.9 Gastro-esophageal reflux disease without esophagitis; F32.9 Major depressive disorder, single episode, unspecified; R19.4 Change in bowel habit; R10.9 Unspecified abdominal pain; F41.9 Anxiety disorder, unspecified; Z98.890 Other specified postprocedural states; Z95.0 Presence of cardiac pacemaker; Z87.891 Personal history of nicotine dependence